=== PATIENT | male | born 1965 | race Caucasian/White ===

== ENCOUNTER 2018-10-17 08:08 | Day surgery (SDC) | payer BC ==
[2018-10-15 15:29] VITALS: BMI 48.9
[~2018-10-17 08:08] MED LIST: LACTATED RINGERS 1,000 ML IV SCH
[2018-10-17 08:27] VITALS: TEMP 97
[2018-10-17] MEDS ORDERED: PROPOFOL 10 MG/ML 20 ML VIAL IV ONE (08:44)
--- NOTE | 2018-10-17 09:00 | P.OP ---
Date of Procedure: 10/17/18 Preoperative Diagnosis: Screening colonoscopy Change in bowel habits Postoperative Diagnosis: Diverticulosis Possible left colon colitis pathology pending Procedure(s) Performed: Colonoscopy Anesthesia: MAC Surgeon: Leonides Hahn Pathology: other (Left colon) Condition: stable Disposition: PACU Description of Procedure: The patient's placed on the endoscopy table lateral position. He received IV sedation. Digital rectal exam is performed which revealed no abnormalities. The prostate was symmetric without nodules. Flexible colonoscope was then placed anus passed rotator colon. The ileocecal valve sutures. Cecum, ascending and transverse colon appeared normal. In the descending colon there were diverticular changes. There is also an area of the colon was erythematous a biopsies performed cold forcep. The scope was brought back and sigmoid colon there is extensive diverticular changes. Scope was brought back the rectum and this appeared normal. Scope was withdrawn for patient.
--- NOTE | 2018-10-17 09:01 | P.GSHP ---
History of Present Illness H&P Date: 10/17/18 Chief Complaint: Screen colonoscopy, change in bowel habits This a 53-year-old male who presents today for colonoscopy. Patient has had increased constipation. Past Medical History Past Medical History: Sleep Apnea/CPAP/BIPAP Additional Past Medical History / Comment(s): C PAP History of Any Multi-Drug Resistant Organisms: None Reported Past Surgical History: Tonsillectomy Additional Past Surgical History / Comment(s): REVISION OF AMPUTATION LEFT HAND Past Anesthesia/Blood Transfusion Reactions: No Reported Reaction Smoking Status: Never smoker - Past Family History Father Family Medical History: Cancer Additional Family Medical History / Comment(s): BREAST, TESTICULAR, BLADDER CANCER Mother Family Medical History: Congestive Heart Failure (CHF) Medications and Allergies Home Medications Medication Instructions Recorded Confirmed Type No Known Home Medications 10/15/18 10/15/18 History Allergies Allergy/AdvReac Type Severity Reaction Status Date / Time No Known Allergies Allergy Verified 10/17/18 08:27 Surgical - Exam Vital Signs Temp Pulse Resp BP Pulse Ox 97.0 F L 87 18 133/99 95 10/17/18 08:26 10/17/18 08:26 10/17/18 08:26 10/17/18 08:26 10/17/18 08:26 - General well developed, well nourished, no distress - Eyes PERRL - ENT normal pinna - Neck no masses - Respiratory normal expansion - Cardiovascular Rhythm: regular - Abdomen Abdomen: soft, non tender Assessment and Plan Assessment: Change in bowel habits with increasing constipation We'll perform screening colonoscopy.
[2018-10-17 09:04] VITALS: RESP 16
[2018-10-17 09:15] VITALS: BP 140/84; PULSE 75
== END 2018-10-17 09:48 | disposition home or self-care (01) ==
LOC: ORWHC2ENDO 08:08
PROVIDERS: ATTEND Surgery
DX: K57.30 Diverticulosis of large intestine without perforation or abscess without bleeding (principal); K59.00 Constipation, unspecified; G47.33 Obstructive sleep apnea (adult) (pediatric); Z98.890 Other specified postprocedural states; Z99.89 Dependence on other enabling machines and devices; Z89.112 Acquired absence of left hand; Z80.3 Family history of malignant neoplasm of breast; Z80.43 Family history of malignant neoplasm of testis; Z80.52 Family history of malignant neoplasm of bladder; Z82.49 Family history of ischemic heart disease and other diseases of the circulatory system
CPT/HCPCS: 88305; 45380; J2704

== ENCOUNTER 2021-10-18 21:28 | Emergency (ER) | payer BC ==
[2021-10-18] MEDS ORDERED: valACYclovir HCL 1,000 MG TABLET PO STA (23:49)
--- NOTE | 2021-10-19 00:03 | ED ---
Neuro HPI - General Chief Complaint: Neuro Symptoms/Deficit Stated Complaint: Right Facial Drooping, Headache Time Seen by Provider: 10/18/21 23:22 Source: patient, family, RN notes reviewed Mode of arrival: ambulatory Limitations: no limitations - History of Present Illness Is the patient presenting with stroke symptoms?: No Initial Comments: This is a pleasant 56-year-old diabetic male who presents to the right brow with right facial drooping which started this morning about 8 AM when she was brushing his teeth. Patient denying any arm or leg weakness. Denies any other symptomology aside from a mild headache. No skin rashes or lesions. no fever or chills, no changes in vision or hearing, no sore throat or difficulty with speech, no neck pain, no chest pain or shortness of breath, no abdominal pain, no nausea or vomiting, no changes in urination or bowel movements, no numbness or tingling, no extremity pain, no skin rashes or lesions. Patient does state that he had a diarrheal illness about 2 weeks ago. - Related Data Home Medications: Previous Rx's Medication Instructions Recorded valACYclovir HCL [Valacyclovir] 1,000 mg PO TID #21 tab 10/18/21 Artificial Tears Ointment 1 gm OPHTHALMIC QID #3.5 gm 10/19/21 [Lubrifresh Pm Ointment] Allergies/Adverse Reactions: Allergies Allergy/AdvReac Type Severity Reaction Status Date / Time No Known Allergies Allergy Verified 10/18/21 21:36 Review of Systems ROS Statement: Those systems with pertinent positive or pertinent negative responses have been documented in the HPI. ROS Other: All systems not noted in ROS Statement are negative. General Exam - General Exam Comments Initial Comments: Nontoxic appearing male in no acute distress. Patient does have evidence of right facial drooping. Cranial nerves intact otherwise. Limitations: no limitations General appearance: alert, in no apparent distress, other (Right facial drooping, involves the forehead) Head exam: Present: atraumatic, normocephalic, normal inspection Eye exam: Present: PERRL, EOMI. Absent: normal appearance (Patient able to close his eye fully on the right however it is weaker than the left.), scleral icterus, conjunctival injection, nystagmus, periorbital swelling ENT exam: Present: normal exam, normal oropharynx, mucous membranes moist, TM's normal bilaterally, other (No evidence of vesicles or lesions). Absent: mucous membranes dry, normal external ear exam Neck exam: Present: normal inspection. Absent: tenderness, meningismus, lymphadenopathy Respiratory exam: Present: normal lung sounds bilaterally. Absent: respiratory distress, wheezes, rales, rhonchi, stridor Cardiovascular Exam: Present: regular rate, normal rhythm, normal heart sounds. Absent: systolic murmur, diastolic murmur, rubs, gallop, clicks GI/Abdominal exam: Present: soft, normal bowel sounds. Absent: distended, tenderness, guarding, rebound, rigid Extremities exam: Present: normal inspection, full ROM, normal capillary refill. Absent: tenderness, pedal edema, joint swelling, calf tenderness Back exam: Present: normal inspection Neurological exam: Present: alert, oriented X3, CN II-XII intact Expanded Patient oriented to: Present: person, place, time Speech: Present: fluid speech Cranial nerves: EOM's Intact: Normal, Gag Reflex: Normal, Tongue Deviation: Normal, Facial Sensation: Normal, Facial Palsy without Forehead Movement: Normal (Right forehead weakness) Cerebellar function: Finger to Nose: Normal, Romberg: Normal Motor strength exam: RUE: 5, LUE: 5, RLE: 5, LLE: 5 Eye Response: (4) open spontaneously Motor Response: (6) obeys commands Verbal Response: (5) oriented Delaney Total: 15 Psychiatric exam: Present: normal affect, normal mood Skin exam: Present: warm, dry, intact, normal color. Absent: rash Stroke MDM - Thrombolytic Inclusion/Exclusion Thrombolytic Exclusion Criteria: Symptom Onset > 4.5 Hours - Medical Decision Making Patient presents with right facial drooping which started at 8 AM. Involves the forehead. This is consistent with clear-cut Hagan's palsy. Discussed etiology with the patient. Patient has no other risk factors. Patient does have diabetes. We'll going to avoid corticosteroids. Valacyclovir 1000 mg 3 times a day for 7 days. Patient was told to return to the ER for any signs or symptoms worsen. Told to return immediately if any other problems arise. All questions answered. Treatment plan discussed. Patient in agreement Every effort has been made to ensure accuracy of this dictation. However, due to the limitations of electronic medical records and dictation devices, errors in charting still occur. The case was discussed in detail with ED attending physician. Presentation, findings, treatment plan discussed in detail. Ortho/Prosthetic Aide Dr. Hare Past Medical History Past Medical History: Sleep Apnea/CPAP/BIPAP Additional Past Medical History / Comment(s): C PAP History of Any Multi-Drug Resistant Organisms: None Reported Past Surgical History: Tonsillectomy Additional Past Surgical History / Comment(s): REVISION OF AMPUTATION LEFT HAND Past Anesthesia/Blood Transfusion Reactions: No Reported Reaction Past Psychological History: No Psychological Hx Reported Smoking Status: Never smoker Past Alcohol Use History: Rare Past Drug Use History: None Reported - Past Family History Father Family Medical History: Cancer Additional Family Medical History / Comment(s): BREAST, TESTICULAR, BLADDER CANCER Mother Family Medical History: Congestive Heart Failure (CHF) Course Vital Signs 10/18/21 21:29 Temperature 98.2 F Pulse Rate 77 Respiratory 22 Rate Blood Pressure 149/98 O2 Sat by Pulse 94 L Oximetry Disposition Clinical Impression: Hagan's palsy Disposition: HOME SELF-CARE Condition: Good Instructions (If sedation given, give patient instructions): Hagan Palsy (ED) Additional Instructions: Make a follow-up appointment with your regular provider. You can also make a follow-up appointment with a neurologist. Tape your eye shut at night as instructed. Use the artificial tears as directed. Take the antiviral medication until it is gone. Follow-up with your regular physician as directed. Return to the ER immediately if any symptoms worsen, new symptoms arise, or any other problems develop. Prescriptions: Artificial Tears Ointment [Lubrifresh Pm Ointment] 1 gm OPHTHALMIC QID #3.5 gm valACYclovir HCL [Valacyclovir] 1,000 mg PO TID #21 tab Is patient prescribed a controlled substance at d/c from ED?: No Referrals: Keturah Bae NPC [Primary Care Provider] - 1-2 days Lucy Feliz MD [STAFF PHYSICIAN] - 10/25/21 Time of Disposition: 00:02
[2021-10-19 00:25] VITALS: BP 146/97; PULSE 74; RESP 15; TEMP 97.9
== END 2021-10-19 00:26 | disposition home or self-care (01) ==
LOC: EC 21:28
DX: G51.0 Bell's palsy (principal)
CPT/HCPCS: 93005; 99283

== ENCOUNTER → 2022-08-02 | Outpatient (CLI) | payer BC ==
--- NOTE | 2022-08-06 06:01 | MR ---
EXAMINATION TYPE: MR knee RT wo con DATE OF EXAM: 08/02/2022 COMPARISON: Outside right knee x-ray July 19, 2022 HISTORY: Right knee pain and swelling for 8 to 10 years. TECHNIQUE: Multiplanar, multisequence images of the knee is performed without IV contrast. FINDINGS: MEDIAL MENISCUS: Triangular signal posterior horn believed to extend to the inferior articular surfac e. LATERAL MENISCUS: Horizontal increased signal anterior horn into central body. Truncated appearance p osterior horn with posterior defect. CRUCIATE LIGAMENTS: The anterior and posterior cruciate ligaments are intact and unremarkable. COLLATERAL LIGAMENTS: The medial collateral ligament and lateral collateral ligament complex are inta ct and unremarkable. EXTENSOR MECHANISM: Visualized quadriceps and patellar tendons are intact. EFFUSION: Moderate size suprapatellar joint effusion. POPLITEAL CYST: No popliteal/murdock cyst. TRICOMPARTMENT SPACES: Mild to moderate tricompartment joint space loss and spurring. CARTILAGE: Some cartilaginous loss lateral and medial tibial femoral compartments. No significant cho ndromalacia patella. BONE MARROW SIGNAL: No focal abnormal marrow signal is appreciated. OTHER: No additional significant abnormality is appreciated. IMPRESSION: 1. Significant tear posterior horn lateral meniscus extending into body. 2. At least intrasubstance tear anterior horn lateral meniscus. 3. At least intrasubstance tear suspected full-thickness tear posterior horn medial meniscus. 4. Fairly moderate tricompartment degenerative changes as detailed above. 5. Moderate-size suprapatellar joint effusion.
== END | disposition home or self-care (01) ==
LOC: RADMRIMAIN 10:45
PROVIDERS: ATTEND Orthopaedic Surgery
DX: M23.251 Derangement of posterior horn of lateral meniscus due to old tear or injury, right knee (principal); M23.241 Derangement of anterior horn of lateral meniscus due to old tear or injury, right knee; M17.11 Unilateral primary osteoarthritis, right knee; M25.461 Effusion, right knee